=== PATIENT | female | born 1985 | race Caucasian/White ===

== ENCOUNTER 2016-08-09 20:53 | Emergency (ER) | payer OTHER ==
[~2016-08-09] VITALS: Ht 160 cm; Wt 70.0 kg
[~2016-08-09 20:53] MED LIST: PRIL20CA PO; PROM25SU8 PO; TRAM50 PO; Z.0.NO CURRENT MEDS
[2016-08-09 20:56] VITALS: BP 134/88; PULSE 88; RESP 14; TEMP 98.9; O2SAT 100
[2016-08-09] MEDS ORDERED: FAMOTIDINE 20 MG TAB PO ONE (22:00)
[2016-08-09] MEDS ORDERED: SODIUM CHLOR 0.9% 1000 ML INJ 1,000 ML IV ONE (22:00)
[2016-08-09] MEDS ORDERED: ALUMINUM/MAGNESIUM/SIMETH 30 ML CUP PO ONE (22:00)
[2016-08-09] MEDS ORDERED: LIDOCAINE VISCOUS 2% SOLN 15 ML UDC PO ONE (22:00)
[2016-08-09 22:22] LABS: AUTOMATED NEUTROPHIL # 9.4 TH/MM3 (1.8-7.7); BASOPHIL # 0.1 TH/MM3 (0-0.2); BASOPHIL % 0.7 % (0.0-2.0); EOSINOPHIL # 0.2 TH/MM3 (0-0.4); EOSINOPHIL % 1.8 % (0.0-4.0); HEMATOCRIT 40.9 % (35.0-46.0); HEMO FLAGS DIFF FINAL; LYMPH % 21.5 % (9.0-44.0); MEAN CELL VOLUME 93.3 FL (80.0-100.0); MEAN CORPUSCULAR HEMOGLOBIN 32.4 PG (27.0-34.0); MEAN CORPUSCULAR HGB CONC 34.7 % (32.0-36.0); MONO % 9.1 % (0.0-8.0); NEUT % 66.9 % (16.0-70.0); PLATELET COUNT 326 TH/MM3 (150-450); RED BLOOD COUNT 4.39 MIL/MM3 (4.00-5.30); RED CELL DISTRIBUTION WIDTH 12.7 % (11.6-17.2)
[2016-08-09 22:30] LABS: BACTERIA, URINE RARE /hpf; BLOOD, URINE NEG (NEG); COMMENT (UR) CULT NOT INDICATED; CULTURE IF INDICATED CULT NOT INDICATED; GLUCOSE,URINE NEG (NEG); KETONE, URINE NEG (NEG); MUCUS URINE FEW /lpf (OCC); NITRITE,URINE NEG (NEG); PH, URINE 6.5 (5.0-8.5); SQUAMOUS EPITHELIAL CELL URINE 4 /hpf (0-5); URINE COLOR LIGHT-YELLOW (YELLW/STRAW)
[2016-08-09 22:43] LABS: ALKALINE PHOSPHATASE 70 U/L (45-117); TOTAL BILIRUBIN ADULT 0.2 MG/DL (0.2-1.0)
[2016-08-09 23:04] LABS: ALT (GPT) 45 U/L (10-53); ANION GAP 7 MEQ/L (5-15); AST (GOT) 28 U/L (15-37); BLOOD UREA NITROGEN 15 MG/DL (7-18); CHLORIDE 106 MEQ/L (98-107); GLOMERULAR FILTRATION RATE 100 ML/MIN (>89); INDIRECT BILIRUBIN 0.1 MG/DL (0.0-0.8); SODIUM (NA) 138 MEQ/L (136-145)
[2016-08-10] MEDS ORDERED: ZANT150T2 PO (00:14)
--- NOTE | 2016-08-10 00:14 | PD ---
HPI Chief Complaint: Abdominal Pain Time Seen by Provider: 21:38 Travel History International Travel<30 days: No Contact w/Intl Traveler<30days: No Traveled to known affect area: No History of Present Illness HPI Patient is a 31-year-old female, approximately 7 weeks who comes in complaining of epigastric abdominal pain. She says the pain started yesterday and has been getting worse. She says taking deep breaths makes the pain worse. She denies fever or chills. She denies nausea or vomiting. She's been eating like normal. She denies any vaginal bleeding or discharge. [facility] Past Medical History Diabetes: Yes (GESTATIONAL) Patient Takes Glucophage: No Diminished Hearing: No Psychiatric: Yes Immunizations Current: Yes ?: LMP: June : 0 Para: 0 Miscarriage: 0 : 0 Past Surgical History Abdominal Surgery: Yes (COLON RESECTION A BABY) Appendectomy: Yes Section: Yes Cholecystectomy: Yes Social History Alcohol Use: Yes (HISTORY ETOH ABUSE) Tobacco Use: Yes (1PPD) Substance Use: Yes (ABUSES LORTABS OCCASIONALLY) Allergies-Medications (Allergen,Severity, Reaction): Coded Allergies: Penicillin (Verified Allergy, Unknown, rash, 08/09/16) Reported Meds & Prescriptions Reported Meds & Active Scripts Active Zantac (Ranitidine HCl) 150 Mg Tab 150 Mg PO BID Review of Systems Except as stated in HPI: all other systems reviewed are Neg General / Constitutional: No: Fever, Chills HENT: No: Headaches, Lightheadedness Cardiovascular: No: Chest Pain or Discomfort Respiratory: No: Shortness of Breath Gastrointestinal: Positive: Abdominal Pain, No: Nausea, Vomiting Genitourinary: No: Dysuria Skin: No Rash Neurologic: No: Weakness, Dizziness Physical Exam Narrative GENERAL: Awake and alert, no acute distress. SKIN: Focused skin assessment warm/dry. HEAD: Atraumatic. Normocephalic. EYES: Pupils equal and round. No scleral icterus. ENT: Mucous membranes pink and moist. NECK: Trachea midline. No JVD. CARDIOVASCULAR: Regular rate and rhythm. No murmur appreciated. RESPIRATORY: No accessory muscle use. Clear to auscultation. Breath sounds equal bilaterally. GASTROINTESTINAL: Abdomen soft, nondistended. Tender to palpation of the mid epigastric area. No rebound or guarding. No CVA tenderness. MUSCULOSKELETAL: No obvious deformities. No clubbing. No cyanosis. No edema. NEUROLOGICAL: Awake and alert. No obvious cranial nerve deficits. Motor grossly within normal limits. Normal speech. PSYCHIATRIC: Appropriate mood and affect; insight and judgment normal. Data Data Last Documented VS Vital Signs Date Time Temp Pulse Resp B/P Pulse Ox O2 Delivery O2 Flow Rate FiO2 08/09/16 20:56 98.9 88 14 134/88 100 Room Air Orders Complete Blood Count With Diff (08/09/16 21:46) Basic Metabolic Panel (Bmp) (08/09/16 21:46) Hepatic Functional Panel (08/09/16 21:46) Lipase (08/09/16 21:46) Urinalysis - C+S If Indicated (08/09/16 21:46) Sodium Chlor 0.9% 1000 Ml Inj (Ns 1000 M (08/09/16 22:00) Famotidine (Pepcid) (08/09/16 22:00) Al-Mag Hy-Si 40-40-4 Mg/Ml Liq (Mag-Al P (08/09/16 22:00) Lidocaine 2% Viscous (Xylocaine 2% Visco (08/09/16 22:00) Labs Laboratory Tests Test 08/09/16 22:07 White Blood Count 14.0 TH/MM3 Red Blood Count 4.39 MIL/MM3 Hemoglobin 14.2 GM/DL Hematocrit 40.9 % Mean Corpuscular Volume 93.3 FL Mean Corpuscular Hemoglobin 32.4 PG Mean Corpuscular Hemoglobin 34.7 % Concent Red Cell Distribution Width 12.7 % Platelet Count 326 TH/MM3 Mean Platelet Volume 7.7 FL Neutrophils (%) (Auto) 66.9 % Lymphocytes (%) (Auto) 21.5 % Monocytes (%) (Auto) 9.1 % Eosinophils (%) (Auto) 1.8 % Basophils (%) (Auto) 0.7 % Neutrophils # (Auto) 9.4 TH/MM3 Lymphocytes # (Auto) 3.0 TH/MM3 Monocytes # (Auto) 1.3 TH/MM3 Eosinophils # (Auto) 0.2 TH/MM3 Basophils # (Auto) 0.1 TH/MM3 CBC Comment DIFF FINAL Differential Comment Urine Color LIGHT-YELLOW Urine Turbidity CLEAR Urine pH 6.5 Urine Specific [place] 1.011 Urine Protein NEG mg/dL Urine Glucose (UA) NEG mg/dL Urine Ketones NEG mg/dL Urine Occult Blood NEG Urine Nitrite NEG Urine Bilirubin NEG Urine Urobilinogen LESS THAN 2.0 MG/DL Urine Leukocyte Esterase TRACE Urine RBC LESS THAN 1 /hpf Urine Squamous Epithelial 4 /hpf Cells Urine Bacteria RARE /hpf Urine Mucus FEW /lpf Microscopic Urinalysis Comment CULT NOT INDICATED Sodium Level 138 MEQ/L Potassium Level 4.0 MEQ/L Chloride Level 106 MEQ/L Carbon Dioxide Level 25.0 MEQ/L Anion Gap 7 MEQ/L Blood Urea Nitrogen 15 MG/DL Creatinine 0.69 MG/DL Estimat Glomerular Filtration 100 ML/MIN Rate Random Glucose 83 MG/DL Calcium Level 9.3 MG/DL Total Bilirubin 0.2 MG/DL Direct Bilirubin LESS THAN 0.1 MG/DL Indirect Bilirubin 0.1 MG/DL Aspartate Amino Transf 28 U/L (AST/SGOT) Alanine Aminotransferase 45 U/L (ALT/SGPT) Alkaline Phosphatase 70 U/L Total Protein 7.6 GM/DL Albumin 3.9 GM/DL Lipase 163 U/L MDM Medical Decision Making Medical Screen Exam Complete: Yes Emergency Medical Condition: Yes Medical Record Reviewed: Yes Differential Diagnosis GERD versus gastritis versus pancreatitis versus cholecystitis Narrative Course Patient is a 31-year-old female comes in complaining of epigastric abdominal pain. Exam shows tenderness in midepigastric area. IV established, labs sent. Labs show no acute abnormalities. Urinalysis is negative for UTI. Patient given IV fluids, Maalox, lidocaine, famotidine. She is sleeping comfortably. However when woken up, she says she still has pain. We discussed medications that are safe in . She does not want any other medication at this time. We will discharge with prescription for Zantac. Advised to avoid spicy food, peppers, chocolate, caffeine. Advised to follow-up with her OB. Advised to return to the ED as needed for any worsening symptoms. Diagnosis Primary Impression: Gastritis Qualified Code: K29.00 - Acute gastritis without hemorrhage, unspecified gastritis type Patient Instructions: Gastritis (ED), General Instructions Additional Instructions: You can take Maalox for pain. Take the Zantac twice a day. Avoid spicy foods, peppers, caffeine, chocolate. Follow up with your OB. Return to the ED as needed for any worsening symptoms. Scripts Ranitidine (Zantac)150 Mg [id number] Mg PO BID #60 TAB Ref 0 Prov:Paulina Mckeon MD 08/10/16 Disposition: 01 DISCHARGE HOME Condition: Stable Paulina Mckeon MD August 10, 2016 00:14
== END 2016-08-10 00:51 | disposition home or self-care (01) ==
LOC: NEPE 20:53
DX: O99.611 Diseases of the digestive system complicating pregnancy, first trimester (principal); K29.00 Acute gastritis without bleeding; Z3A.01 Less than 8 weeks gestation of pregnancy
CPT/HCPCS: 80048; 80076; 81001; 83690; 85025; 96360; 99284; J7030

== ENCOUNTER 2017-03-31 01:16 | Inpatient (IN) | payer MEDICAID, OTHER ==
[~2017-03-31] VITALS: Ht 162.6 cm; Wt 83.0 kg
[2017-03-31] VITALS (63 sets, daily range): BP systolic 108–162; BP diastolic 52–100; PULSE 71–216; RESP 16–20; TEMP 97.7–98.5
[~2017-03-31 01:16] MED LIST changes: -PRIL20CA PO; -PROM25SU8 PO; -TRAM50 PO; -Z.0.NO CURRENT MEDS; +ZANT150T2 PO
[2017-03-31] MEDS: LACTATED RINGER'S 1000 ML INJ 1,000 ML IV SCH ×3 (02:00→07:59)
--- NOTE | 2017-03-31 02:09 | PD ---
HPI Chief Complaint Contractions Date Seen: Mar 31, 2017 Time Seen: 02:00 Travel History International Travel<30 Days: No Contact w/Intl Traveler<30Days: No Known Affected Area: No History of Present Illness HPI 31-year-old 3 para 2 at 38+ weeks gestation presents tonight with increasing contraction activity. She denies leakage of fluid or bleeding. She has a history of 2 prior C-sections but desires a trial of labor. History Past Medical History Medical History: Denies Significant Hx Obstetric History Obstetric History First complicated by distress in active labor and subsequent C- section at [facility]. Second was elective repeat Her largest infant was 8 pounds and her smallest was 6-1/2 pounds care this has been with Anastasiia Beard. O positive AST negative hepatitis B negative RPR nonreactive rubella immune hemoglobin 14 HIV -1 hour 95 GBS negative GC chlamydia negative Past Surgical History Narrative Surgical 2, colostomy and colostomy reversal at age 2 Family History Family History: Negative Social History Alcohol Use: No Tobacco Use: No Substance Abuse: No Allergies-Medications (Allergen,Severity, Reaction): Coded Allergies: penicillin G (Unverified Allergy, Unknown, rash, 11/07/16) Home Meds Active Scripts Ranitidine (Zantac) 150 Mg Tab, 150 MG PO BID for Reduce Stomach Acid, #60 TAB 0 Refills Prov:Paulina Mckeon MD 08/10/16 Review of Systems Except as stated in HPI: all other systems reviewed are Neg Physical Exam Narrative GENERAL: Well-nourished, well-developed patient. SKIN: Warm and dry. HEAD: Normocephalic and atraumatic. EYES: No scleral icterus. No injection or drainage. ENT: No nasal drainage noted. Mucous membranes pink. Airway patent. NECK: Supple, trachea midline. No JVD. CARDIOVASCULAR: Regular rate and rhythm without murmurs, gallops, or rubs. RESPIRATORY: Breath sounds equal bilaterally. No accessory muscle use. ABDOMEN/GI: Abdomen soft, non-tender, bowel sounds present, no rebound, no guarding Gravid to [-38 weeks, estimated weight 6-1/2-7 pounds] weeks size Fundal Height: [-37] GENITOURINARY: External Genitalia: intact and normal in appearance BUS glands: [Negative-] Cervix: [-] Dilatation: [-4] Effacement: [-100] Station: [--2] Presentation: [-Vertex] Membranes: [intact] Uterine Contractions: [-Every 3] FHT's: Category: [1-] Baseline: [-] Reactive: [-] Variability: [-] Decels: [-] EXTREMITIES: No cyanosis or edema. BACK: Nontender without obvious deformity. No CVA tenderness. NEUROLOGICAL: Awake and alert. Motor and sensory grossly within normal limits. Five out of 5 muscle strength in all muscle groups. Normal speech. Data Data Vital Signs Reviewed: Yes Orders Orders Ob (2e) Additional Admit Info (03/31/17 01:57) Group B Strep: Negative MDM Medical Record Reviewed: Yes Narrative Course / MDM Assessment: Multiparous female at 38 weeks gestation in early active labor, 2 prior sections desiring trial of labor Plan: We reviewed the risks benefits and alternatives emphasizing on risks associated with trial of labor after 2 C-sections. She is accepting of this risk and desires to proceed with trial of labor. Admit for labor management. Lito Shukla MD Mar 31, 2017 02:09
[2017-03-31] MEDS ORDERED: LACTATED RINGER'S 1000 ML INJ 1,000 ML IV PRN (02:10)
[2017-03-31] MEDS ORDERED: LIDOCAINE HCL 1% 50 ML VIAL I-DERMAL PRN (02:15)
[2017-03-31] MEDS ORDERED: CITRIC ACID-SODIUM CITRATE LIQ 30 ML UDC PO SCH (02:15)
[2017-03-31] MEDS ORDERED: LIDOCAINE HCL 1% 50 ML VIAL INFIL PRN (02:15)
[2017-03-31] MEDS ORDERED: OXYTOCIN 30 UNITS-500ML PREMIX 500 ML IV ONE (02:15)
[2017-03-31] MEDS ORDERED: ONDANSETRON HCL 4 MG/2 ML VIAL IV PUSH PRN (02:15)
[2017-03-31] MEDS ORDERED: MINERAL OIL 10 ML VIAL TOPICAL PRN (02:15)
[2017-03-31] MEDS ORDERED: SODIUM CHLORID 0.9% 500 ML INJ 500 ML IV PRN (02:15)
[2017-03-31] MEDS ORDERED: SODIUM CHLOR 0.9% 1000 ML INJ 1,000 ML IV PRN (02:30)
[2017-03-31] MEDS ORDERED: fentaNYL 2MCG-BUPIV 0.125% INJ 100 ML ONE ×3 (02:33→09:30)
[2017-03-31 02:37] LABS: AUTOMATED NEUTROPHIL # 12.7 TH/MM3 (1.8-7.7); BASOPHIL # 0.2 TH/MM3 (0-0.2); EOSINOPHIL # 0.3 TH/MM3 (0-0.4); EOSINOPHIL % 1.5 % (0.0-4.0); HEMATOCRIT 38.7 % (35.0-46.0); HEMOGLOBIN 13.4 GM/DL (11.6-15.3); LYMPH % 20.5 % (9.0-44.0); LYMPHOCYTE # 3.6 TH/MM3 (1.0-4.8); MEAN CELL VOLUME 95.3 FL (80.0-100.0); MEAN CORPUSCULAR HGB CONC 34.6 % (32.0-36.0); MEAN PLATELET VOLUME 7.7 FL (7.0-11.0); MONO % 5.7 % (0.0-8.0); NEUT % 71.3 % (16.0-70.0); PLATELET COUNT 296 TH/MM3 (150-450); RED BLOOD COUNT 4.06 MIL/MM3 (4.00-5.30); RED CELL DISTRIBUTION WIDTH 13.1 % (11.6-17.2); WHITE BLOOD COUNT 17.8 TH/MM3 (4.0-11.0)
[2017-03-31 02:48] LABS: AMORPHOUS SEDIMENT, URINE FEW; BACTERIA, URINE RARE /hpf; BILIRUBIN, URINE NEG (NEG); BLOOD, URINE NEG (NEG); GLUCOSE,URINE NEG (NEG); KETONE, URINE NEG (NEG); MUCUS URINE FEW /lpf (OCC); NITRITE,URINE NEG (NEG); PH, URINE 7.5 (5.0-8.5); SQUAMOUS EPITHELIAL CELL URINE 3 /hpf (0-5); URINE COLOR YELLOW (YELLW/STRAW); URINE LEUKOCYTE ESTERASE SMALL (NEG)
[2017-03-31 03:26] LABS: ALT (GPT) 15 U/L (10-53); BICARBONATE 21.7 MEQ/L (21.0-32.0); BLOOD UREA NITROGEN 10 MG/DL (7-18); CALCIUM 9.9 MG/DL (8.5-10.1); CHLORIDE 106 MEQ/L (98-107); CREATININE 0.67 MG/DL (0.50-1.00); GLOMERULAR FILTRATION RATE 103 ML/MIN (>89); GLUCOSE,RANDOM 81 MG/DL (74-106); SODIUM (NA) 138 MEQ/L (136-145)
[2017-03-31 03:30] LABS: ALKALINE PHOSPHATASE 150 U/L (45-117); AST (GOT) 13 U/L (15-37); TOTAL BILIRUBIN ADULT 0.4 MG/DL (0.2-1.0); TOTAL PROTEIN 7.4 GM/DL (6.4-8.2)
--- NOTE | 2017-03-31 09:57 | PD.OB.DELI ---
Weeks gestation: 38 Artificial rupture of membrane: No Anesthesia: Epidural Episiotomy: None Vaginal Delivery: Normal, Spontaneous Presentation: Occiput anterior Nuchal Cord: None Delayed cord clamping (45 sec): Yes : Female Delivery date: Mar 31, 2017 Delivery time: 09:41 One Minute : 8 Five Minute : 9 Weight: 3203 grams Placenta: Spontaneous delivery, Intact, 3 vessel cord Laceration: No lacerations Estimated blood loss: < 250 cc Additional Information Patient is a 32 year old now , mother delivered vaginally over an intact perineum under epidural anesthesia. There was no nuchal cord. The cord was clamped and cut after 45 seconds. The placenta was delivered intact with a normal 3-vessel cord within 10 minutes. Sample of blood was obtained for blood cord gas. There were no lacerations. Blood estimation < 250 cc. Female infant weighs 3203 grams. scores are 8/9 at 1 and 5 minutes respectively. (Ankur Donato MD R2) Attestation Patient seen and evaluated with resident under direct supervision, agree with assessment and plan. (Lito Shukla MD) Ankur Donato MD R2 Mar 31, 2017 09:57 Lito Shukla MD Apr 01, 2017 11:37
[2017-03-31] MEDS ORDERED: ACETAMINOPHEN 325 MG TAB PO PRN (10:00)
[2017-03-31] MEDS ORDERED: ALUMINUM/MAGNESIUM/SIMETH 30 ML CUP PO PRN (10:00)
[2017-03-31] MEDS ORDERED: SODIUM CHLORIDE 0.9% FLUSH 10 ML FLUSH IV FLUSH PRN (10:00)
[2017-03-31] MEDS ORDERED: BENZOCAINE 20% TOPICAL SPRAY 60 ML CAN TOPICAL PRN (10:00)
[2017-03-31] MEDS ORDERED: OXYTOCIN 30 UNITS-500ML PREMIX 500 ML IV SCH (10:00)
[2017-03-31] MEDS ORDERED: SODIUM CHLORIDE 0.9% FLUSH 10 ML FLUSH IV FLUSH SCH (10:00)
[2017-03-31] MEDS ORDERED: ONDANSETRON ODT 4 MG TAB PO PRN (10:00)
[2017-03-31] MEDS ORDERED: ZOLPIDEM TARTRATE 5 MG TAB PO PRN (10:00)
[2017-03-31] MEDS ORDERED: WITCH HAZEL 50%/GLYCERIN 12.5% 40 PAD JAR TOPICAL PRN (10:00)
[2017-03-31] MEDS ORDERED: fentaNYL 2MCG-BUPIV 0.125% 100 ML EPIDURAL SCH (11:00)
[2017-03-31] MEDS ORDERED: ePHEDrine/NS 25 MG/5 ML SYRINGE IV PUSH PRN (11:00)
[2017-03-31] MEDS ORDERED: DO NOT ADMINISTER ANTICOAGULANTS PRN (11:00)
[2017-03-31] MEDS ORDERED: NO SYSTEM NARCOTICS PRN (11:00)
[2017-03-31] MEDS: IBUPROFEN 800 MG TAB PO PRN ×2 (11:27→22:26)
[2017-03-31] MEDS ORDERED: MEASLES, MUMPS, RUBELLA VACCINE 0.5 ML VIAL SQ ONE (16:00)
[2017-03-31] MEDS ORDERED: DIPHTH/TETANUS/ACEL PERTUSSIS (BOOSTER) 0.5 ML VIAL/PFS IM ONE (16:00)
[2017-03-31] MEDS: oxyCODONE/ACETAMINOPHEN 5 MG/325 MG TAB PO PRN ×2 (16:20→22:27)
--- NOTE | 2017-04-01 07:42 | HHI.OB ---
Subjective Post Day: 1 Remarks Patient seen and examined this morning. AFVSS overnight. day #1. Patient states her pain is well controlled. Decreased lochia. Denies dysuria. She is feeding her baby via breast without reported issues. No breast tenderness. No nausea or vomiting. Ambulating well without issues. Denies fevers , calf pain, shortness of breath, or cough. She is still considering her options for contraception. She otherwise has no other complaints or concerns this morning. Objective Vitals/I&O Vital Signs Date Time Temp Pulse Resp B/P (MAP) Pulse Ox O2 Delivery O2 Flow Rate FiO2 03/31/17 22:30 71 16 117/80 (92) 03/31/17 22:30 97.7 03/31/17 12:56 92 119/76 (90) 03/31/17 12:56 98.0 18 03/31/17 12:38 18 03/31/17 11:30 72 127/90 (102) 03/31/17 11:01 98 141/88 (105) 03/31/17 10:45 89 122/79 (93) 03/31/17 10:30 96 126/75 (92) 03/31/17 10:15 102 134/91 (105) 03/31/17 10:15 16 03/31/17 10:01 99 131/83 (99) 03/31/17 10:00 97.9 03/31/17 10:00 18 03/31/17 09:55 108 143/81 (101) 03/31/17 09:30 18 03/31/17 09:10 104 03/31/17 09:05 91 03/31/17 09:00 77 03/31/17 09:00 97 133/76 (95) 03/31/17 08:30 75 03/31/17 08:30 86 118/62 (80) 03/31/17 08:10 97 03/31/17 08:05 100 03/31/17 08:00 93 131/84 (100) 03/31/17 08:00 98.3 90 18 03/31/17 07:40 91 Objective Remarks GENERAL: Well-nourished, well-developed patient. CARDIOVASCULAR: Regular rate and rhythm without murmurs, gallops, or rubs. RESPIRATORY: Breath sounds equal bilaterally. No accessory muscle use. ABDOMEN/GI: Abdomen soft, non-tender. Fundus: Firm, non-tender at umbilicus. GENITOURINARY: Light to moderate bleeding. EXTREMITIES: No cyanosis or edema, non-tender, without signs of DVT. Medications and IVs Current Medications Medications (Trade) Dose Ordered Sig/Beatriz Route Start Time Stop Time Status Last Admin Lactated Ringer's 1,000 ml @ 125 mls/hr Q8H IV 03/31/17 02:10 03/31/17 07:59 Lactated Ringer's 1,000 ml @ 3,000 mls/hr Q20M PRN IV 03/31/17 02:10 Sodium Chloride 1,000 ml @ 100 mls/hr Q10H PRN IV 03/31/17 02:30 (Xylocaine 1% Inj (50 ml)) 0.1 ml UNSCH X1 PRN I-DERMAL 03/31/17 02:15 04/03/17 02:14 (Bicitra Liq) 30 ml [employer] PROPERTY PO 03/31/17 02:15 04/04/17 02:14 (fentaNYL INJ) 50 mcg Q1H PRN IV PUSH 03/31/17 02:15 (fentaNYL INJ) 100 mcg Q1H PRN IV PUSH 03/31/17 02:15 (Xylocaine 1% Inj (50 ml)) 10 ml UNSCH X1 PRN INFIL 03/31/17 02:15 04/02/17 02:14 (Muri-Lube Oil) 10 ml UNSCH PRN TOPICAL 03/31/17 02:15 (NS Flush) 2 ml BID IV FLUSH 03/31/17 10:00 (NS Flush) 2 ml UNSCH PRN IV FLUSH 03/31/17 10:00 03/31/17 11:28 (Tylenol) 650 mg Q4H PRN PO 03/31/17 10:00 (Motrin) 800 mg Q8H PRN PO 03/31/17 10:00 03/31/17 22:26 (Percocet 5-325 Mg) 1 tab Q4H PRN PO 03/31/17 10:00 03/31/17 16:20 (Percocet 5-325 Mg) 2 tab Q4H PRN PO 03/31/17 10:00 03/31/17 22:27 (Americaine 20% Top Spr) 1 spray Q4H PRN TOPICAL 03/31/17 10:00 03/31/17 16:19 (Tucks Pads) 1 applic QID PRN TOPICAL 03/31/17 10:00 03/31/17 16:19 (Marta-Colace) 2 tab Q12HR PRN PO 03/31/17 21:00 (Ambien) 5 mg HS PRN PO 03/31/17 10:00 (Mag-Al Plus Susp Liq) 15 ml Q8H PRN PO 03/31/17 10:00 (Zofran Odt) 4 mg Q6H PRN PO 03/31/17 10:00 Miscellaneous Information No systemic narcotics to be given except... UNSCH PRN .XX 03/31/17 11:00 04/01/17 10:59 Miscellaneous Information DO NOT ADMINISTER ANY ANTICOAGUL... UNSCH PRN .XX 03/31/17 11:00 04/01/17 10:59 Fentanyl/ Bupivacaine HCl 100 ml @ 0 mls/hr TITRATE EPIDURAL 03/31/17 11:00 (ePHEDrine/NS 25 MG/5 ML SYR) 10 mg UNSCH PRN IV PUSH 03/31/17 11:00 04/01/17 10:59 Assessment/Plan Assessment and Plan 32 year old PPD#1. 1. Care - AFVSS - Encouraged OOB, as tolerated - Motrin prn pain - Advised pelvic rest x 6 weeks - without issues - Contraception: Discussed with patient this AM, patient still considering her options - Will f/u with OB provider in 6 weeks [facility] Hospitalist Ankur Donato MD R2 Apr 01, 2017 07:42
[2017-04-01 08:00] VITALS: BP 111/74; PULSE 77; RESP 20; TEMP 95.7; O2SAT 0
[2017-04-01] MEDS: IBUPROFEN 800 MG TAB PO PRN ×2 (08:00→13:54)
[2017-04-01] MEDS: DOCUSATE SODIUM 50 MG/SENNA 8.6 MG TAB PO PRN (08:00)
[2017-04-01] MEDS: oxyCODONE/ACETAMINOPHEN 5 MG/325 MG TAB PO PRN ×3 (08:01→20:28)
[2017-04-01] MEDS ORDERED: PERI PO (08:49)
[2017-04-01] MEDS ORDERED: IBUP1TAB7 PO (08:49)
--- NOTE | 2017-04-01 08:49 | HHI.DCPOC ---
Discharge Care Plan Diagnosis: (1) care following vaginal delivery Report Symptoms to Your Doctor -Temperature above 100.5 degrees -Redness, of incision or excessive or foul smelling drainage -Unusual pain or calf pain -Increased vaginal bleeding -Painful or difficulty urinating -Feelings of extreme sadness or anxiety after 2 weeks Goals to Promote Your Health * To maintain your health at the optimal level, follow up with your OB provider within 6 weeks after hospital discharge. Directions to Meet Your Goals Take your medications as prescribed Follow your dietary instruction Follow activity as directed Ensure plenty of rest for recovery Drink fluids for hydration Keep your appointments as scheduled Take your immunizations and boosters as scheduled If your symptoms worsen call your PCP, if no PCP go to Urgent Care Center or Emergency Room Smoking is Dangerous to Your Health. Avoid second hand smoke Call the 24-hour crisis hotline for domestic abuse at Ankur Donato MD R2 Apr 01, 2017 08:49
[2017-04-01 20:10] VITALS: BP 138/92; PULSE 80; RESP 18; TEMP 98.1
[2017-04-02] MEDS: IBUPROFEN 800 MG TAB PO PRN (04:24)
[2017-04-02] MEDS: oxyCODONE/ACETAMINOPHEN 5 MG/325 MG TAB PO PRN (04:24)
[2017-04-02] MEDS: DOCUSATE SODIUM 50 MG/SENNA 8.6 MG TAB PO PRN (04:25)
[2017-04-02 08:00] VITALS: BP 113/80; PULSE 60; RESP 18; TEMP 98.6
--- NOTE | 2017-04-02 08:16 | HHI.OB ---
Subjective Post Day: 2 Remarks Mrs. Iyer is a 32 yo who is PPD2 from vaginal delivery (03/31 at 0941). Patient with BP 138/92 the evening of 04/01 but generally normotensive. Patient doing well this morning. She has continued abdominal pain but reports that it is improved with Ibuprofen and Percocet. Patient with decreased lochia. No shortness of breath, chest pain, dysuria, or leg swelling. Patient eating well. Objective Vitals/I&O Vital Signs Date Time Temp Pulse Resp B/P (MAP) Pulse Ox O2 Delivery O2 Flow Rate FiO2 04/01/17 20:10 98.1 80 18 138/92 (107) Objective Remarks GENERAL: Well-nourished, well-developed patient. CARDIOVASCULAR: Regular rate and rhythm without murmurs, gallops, or rubs. RESPIRATORY: Breath sounds equal bilaterally. No accessory muscle use. ABDOMEN/GI: Abdomen soft, non-tender. Fundus: Firm, non-tender at umbilicus. GENITOURINARY: Light to moderate bleeding. EXTREMITIES: No cyanosis or edema, non-tender, without signs of DVT. Medications and IVs Current Medications Medications (Trade) Dose Ordered Sig/Beatriz Route Start Time Stop Time Status Last Admin Lactated Ringer's 1,000 ml @ 125 mls/hr Q8H IV 03/31/17 02:10 03/31/17 07:59 Lactated Ringer's 1,000 ml @ 3,000 mls/hr Q20M PRN IV 03/31/17 02:10 Sodium Chloride 1,000 ml @ 100 mls/hr Q10H PRN IV 03/31/17 02:30 (Xylocaine 1% Inj (50 ml)) 0.1 ml UNSCH X1 PRN I-DERMAL 03/31/17 02:15 04/03/17 02:14 (Bicitra Liq) 30 ml SCROLL MACHINE OPERATOR PO 03/31/17 02:15 04/04/17 02:14 (fentaNYL INJ) 50 mcg Q1H PRN IV PUSH 03/31/17 02:15 (fentaNYL INJ) 100 mcg Q1H PRN IV PUSH 03/31/17 02:15 (Muri-Lube Oil) 10 ml UNSCH PRN TOPICAL 03/31/17 02:15 (NS Flush) 2 ml BID IV FLUSH 03/31/17 10:00 (NS Flush) 2 ml UNSCH PRN IV FLUSH 03/31/17 10:00 03/31/17 11:28 (Tylenol) 650 mg Q4H PRN PO 03/31/17 10:00 (Motrin) 800 mg Q8H PRN PO 03/31/17 10:00 04/02/17 04:24 (Percocet 5-325 Mg) 1 tab Q4H PRN PO 03/31/17 10:00 04/01/17 13:55 (Percocet 5-325 Mg) 2 tab Q4H PRN PO 03/31/17 10:00 04/02/17 04:24 (Americaine 20% Top Spr) 1 spray Q4H PRN TOPICAL 03/31/17 10:00 03/31/17 16:19 (Tucks Pads) 1 applic QID PRN TOPICAL 03/31/17 10:00 03/31/17 16:19 (Marta-Colace) 2 tab Q12HR PRN PO 03/31/17 21:00 04/02/17 04:25 (Ambien) 5 mg HS PRN PO 03/31/17 10:00 (Mag-Al Plus Susp Liq) 15 ml Q8H PRN PO 03/31/17 10:00 (Zofran Odt) 4 mg Q6H PRN PO 03/31/17 10:00 Fentanyl/ Bupivacaine HCl 100 ml @ 0 mls/hr TITRATE EPIDURAL 03/31/17 11:00 Assessment/Plan Problem List: (1) care following vaginal delivery ICD Codes: Z39.2 - Encounter for routine follow-up Assessment and Plan 32 yo who is PPD2 from vaginal delivery (03/31 at 0941) Care - AFVSS -Stable for discharge home; will give Ibuprofen and limited Percocet for pain control Intermittent elevated BP - Will f/u with OB provider in 1 week Chandler Dye MD, R3 Apr 02, 2017 08:16
[2017-04-02] MEDS ORDERED: OXYC1TAB63 PO (08:50)
== END 2017-04-02 12:05 | disposition home or self-care (01) | DRG 775 ==
LOC: HOBED 01:16 → H2EB 01:58 → H1EA 12:28
PROVIDERS: ADMIT Obstetrics & Gynecology; ATTEND Obstetrics & Gynecology
PROC: 10E0XZZ Delivery of Products of Conception, External Approach (ICD-10-PCS; principal; 2017-03-31)
DX: O34.219 Maternal care for unspecified type scar from previous cesarean delivery (principal); Z88.0 Allergy status to penicillin; Z37.0 Single live birth; Z3A.38 38 weeks gestation of pregnancy
CPT/HCPCS: 80053; 80307; 81001; 85025; 86900; 86901; J2590; J7120

== ENCOUNTER 2017-05-09 07:18 | Emergency (ER) | payer MEDICAID ==
[~2017-05-09] VITALS: Ht 162.6 cm; Wt 70.0 kg
[~2017-05-09 07:18] MED LIST changes: +IBUP1TAB7 PO; +OXYC1TAB63 PO; +PERI PO; -ZANT150T2 PO
[2017-05-09] MEDS ORDERED: IOHEXOL 350 MG/ML 10 ML VIAL (for RAD DIAG) IVCONTRAST ONE (07:19)
[2017-05-09 07:20] VITALS: BP 140/80; PULSE 94; RESP 18; TEMP 98.7; O2SAT 99
--- NOTE | 2017-05-09 07:43 | PD ---
HPI . Abdominal pain Chief Complaint: Abdominal Pain Time Seen by Provider: 07:29 Travel History International Travel<30 days: No Contact w/Intl Traveler<30days: No Traveled to known affect area: No History of Present Illness HPI This patient presents with the acute onset of left lower quadrant abdominal pain. This started about 5:30 this morning. It is a sharp, constant pain which she rates 10/10. It is exacerbated by movement. Associated with nausea. She denies vomiting, fever, urinary tract symptoms. She is 5 weeks states that she has had no significant discomfort until this morning. PFSH Past Medical History Diabetes: Yes (GESTATIONAL) Diminished Hearing: No Psychiatric: Yes Immunizations Current: Yes ?: Not : 0 Para: 0 Miscarriage: 0 : 0 Past Surgical History Abdominal Surgery: Yes (COLON RESECTION A BABY) Appendectomy: Yes Section: Yes Cholecystectomy: Yes Social History Alcohol Use: No Tobacco Use: No Substance Use: Yes (ABUSES LORTABS OCCASIONALLY) Allergies-Medications (Allergen,Severity, Reaction): Coded Allergies: No Known Allergies (Verified Allergy, Unknown, 03/31/17) Reported Meds & Prescriptions Reported Meds & Active Scripts Active Oxycodone-Acetaminophen 5-325 (Oxycodone HCl/Acetaminophen) 5 Mg-325 Mg Tablet 1 Tab PO Q4H PRN Gnp Senna Plus 8.6-50 mg (Sennosides-Docusate Sodium) 8.6 Mg-50 Mg Tab 2 Tab PO Q12HR PRN Ibuprofen 800 Mg Tab 800 Mg PO Q8H PRN Review of Systems Except as stated in HPI: all other systems reviewed are Neg General / Constitutional: No: Fever, Chills Gastrointestinal: Positive: Nausea, Abdominal Pain, No: Vomiting, Diarrhea, Constipation Genitourinary: No: Urgency, Frequency, Dysuria, Discharge, Vaginal Bleeding Physical Exam Narrative GENERAL: Patient is awake and alert. She looks uncomfortable. SKIN: warm/dry. Normal color and turgor. HEAD: Normocephalic. Atraumatic. EYES: Pupils equal and round. No scleral icterus. No injection or drainage. ENT: No nasal bleeding or discharge. Mucous membranes pink and moist. NECK: Trachea midline. Full range of motion without pain.. CARDIOVASCULAR: Regular rate and rhythm. RESPIRATORY: No accessory muscle use. Clear to auscultation. Breath sounds equal bilaterally. GASTROINTESTINAL: Abdomen soft. Left lower quadrant tenderness. Bowel sounds present. Nondistended. : No CVA tenderness. MUSCULOSKELETAL: No obvious deformities. NEUROLOGICAL: Awake and alert. No obvious cranial nerve deficits. Motor grossly within normal limits. Normal speech. PSYCHIATRIC: Appropriate mood and affect; insight and judgment normal. Data Data Last Documented VS Vital Signs Date Time Temp Pulse Resp B/P (MAP) Pulse Ox O2 Delivery O2 Flow Rate FiO2 05/09/17 07:52 18 05/09/17 07:20 98.7 94 140/80 (100) 99 Orders Orders Urinalysis - C+S If Indicated (05/09/17 07:30) Ed Urine Pregnancytest Poc (05/09/17 07:30) Basic Metabolic Panel (Bmp) (05/09/17 07:36) Complete Blood Count With Diff (05/09/17 07:36) Ct Abd/Pel W Iv Contrast(Rout) (05/09/17 07:36) Iv Access Insert/Monitor (05/09/17 07:36) Morphine Inj (Morphine Inj) (05/09/17 07:45) Ondansetron Inj (Zofran Inj) (05/09/17 07:45) Sodium Chloride 0.9% Flush (Ns Flush) (05/09/17 07:45) Ketorolac Inj (Toradol Inj) (05/09/17 08:00) Iohexol 350 Inj (Omnipaque 350 Inj) (05/09/17 07:19) Labs Laboratory Tests Test 05/09/17 07:45 White Blood Count 11.6 TH/MM3 Red Blood Count 4.88 MIL/MM3 Hemoglobin 15.4 GM/DL Hematocrit 46.1 % Mean Corpuscular Volume 94.5 FL Mean Corpuscular Hemoglobin 31.6 PG Mean Corpuscular Hemoglobin Concent 33.5 % Red Cell Distribution Width 12.8 % Platelet Count 370 TH/MM3 Mean Platelet Volume 6.9 FL Neutrophils (%) (Auto) 61.3 % Lymphocytes (%) (Auto) 26.8 % Monocytes (%) (Auto) 5.6 % Eosinophils (%) (Auto) 5.6 % Basophils (%) (Auto) 0.7 % Neutrophils # (Auto) 7.1 TH/MM3 Lymphocytes # (Auto) 3.1 TH/MM3 Monocytes # (Auto) 0.7 TH/MM3 Eosinophils # (Auto) 0.6 TH/MM3 Basophils # (Auto) 0.1 TH/MM3 CBC Comment DIFF FINAL Differential Comment Urine Color YELLOW Urine Turbidity HAZY Urine pH 6.5 Urine Specific [place] 1.020 Urine Protein TRACE mg/dL Urine Glucose (UA) NEG mg/dL Urine Ketones NEG mg/dL Urine Occult Blood NEG Urine Nitrite NEG Urine Bilirubin NEG Urine Urobilinogen LESS THAN 2.0 MG/DL Urine Leukocyte Esterase MOD Urine RBC 1 /hpf Urine WBC 2 /hpf Urine Squamous Epithelial Cells 21 /hpf Urine Bacteria OCC /hpf Urine Mucus FEW /lpf Microscopic Urinalysis Comment CULT NOT INDICATED Blood Urea Nitrogen 19 MG/DL Creatinine 0.83 MG/DL Random Glucose 99 MG/DL Calcium Level 8.8 MG/DL Sodium Level 139 MEQ/L Potassium Level 4.1 MEQ/L Chloride Level 106 MEQ/L Carbon Dioxide Level 26.8 MEQ/L Anion Gap 6 MEQ/L Estimat Glomerular Filtration Rate 80 ML/MIN MDM Medical Decision Making Medical Screen Exam Complete: Yes Emergency Medical Condition: Yes Differential Diagnosis Differential diagnosis of abdominal pain includes but is not limited to gastritis, pancreatitis, hepatitis, gastroenteritis, gallbladder disease, constipation, urinary retention, UTI, peptic ulcer disease, diverticulitis or appendicitis Narrative Course This patient presents with acute left lower quadrant abdominal pain. I will check a test. She will be given morphine for pain and Zofran for nausea. Routine labs and CT will be done to try to determine the etiology of her pain. HCG neg. CBC & BMP Diagram 05/09/17 07:45 Calcium Level 8.8 UA>>mod LE, 2 WBCs, occ bact and few mucous--this probably does not indicate infection. CT: 1. No acute CT abnormality to explain patient's abdominal pain. 2. Patient is with prominent endometrium. Although this is within expected findings, clinical correlation is recommended. No obvious etiology for this patient's pain has been found. The history, exam, diagnostic testing, and current condition do not suggest any significant pathology to warrant further testing, continued ED treatment, admission, or surgical evaluation at this point. No EMC was found. The patient 's condition is stable and appropriate for discharge. Diagnosis Primary Impression: Abdominal pain Qualified Codes: R10.32 - Left lower quadrant pain Patient Instructions: Abdominal Pain (ED), General Instructions Med/Other Pt SpecificInfo: Prescription(s) given Scripts Ibuprofen (Ibuprofen) 800 Mg Tab 800 MG PO Q8H Y for Pain/Inflammation, #60 TAB 0 Refills Prov: Estrella Jovel MD 05/09/17 Disposition: 01 DISCHARGE HOME Condition: Stable Estrella Jovel MD May 09, 2017 07:43
[2017-05-09] MEDS ORDERED: SODIUM CHLORIDE 0.9% FLUSH 10 ML FLUSH IV FLUSH PRN (07:45)
[2017-05-09] MEDS ORDERED: ONDANSETRON HCL 4 MG/2 ML VIAL IVP ONE (07:45)
[2017-05-09] MEDS ORDERED: MORPHINE SULFATE 4 MG/ML INJ IV PUSH ONE (07:45)
[2017-05-09] MEDS ORDERED: KETOROLAC TROMETHAMINE 30 MG/ML (IVP) VIAL IV PUSH ONE (08:00)
[2017-05-09 08:08] LABS: AUTOMATED NEUTROPHIL # 7.1 TH/MM3 (1.8-7.7); BASOPHIL # 0.1 TH/MM3 (0-0.2); BASOPHIL % 0.7 % (0.0-2.0); EOSINOPHIL # 0.6 TH/MM3 (0-0.4); EOSINOPHIL % 5.6 % (0.0-4.0); HEMATOCRIT 46.1 % (35.0-46.0); HEMOGLOBIN 15.4 GM/DL (11.6-15.3); LYMPH % 26.8 % (9.0-44.0); LYMPHOCYTE # 3.1 TH/MM3 (1.0-4.8); MEAN CELL VOLUME 94.5 FL (80.0-100.0); MEAN CORPUSCULAR HEMOGLOBIN 31.6 PG (27.0-34.0); MEAN CORPUSCULAR HGB CONC 33.5 % (32.0-36.0); MEAN PLATELET VOLUME 6.9 FL (7.0-11.0); MONO % 5.6 % (0.0-8.0); MONOCYTE # 0.7 TH/MM3 (0-0.9); NEUT % 61.3 % (16.0-70.0); PLATELET COUNT 370 TH/MM3 (150-450); RED BLOOD COUNT 4.88 MIL/MM3 (4.00-5.30); RED CELL DISTRIBUTION WIDTH 12.8 % (11.6-17.2); WHITE BLOOD COUNT 11.6 TH/MM3 (4.0-11.0)
[2017-05-09 08:20] LABS: BACTERIA, URINE OCC /hpf; BILIRUBIN, URINE NEG (NEG); BLOOD, URINE NEG (NEG); GLUCOSE,URINE NEG (NEG); KETONE, URINE NEG (NEG); MUCUS URINE FEW /lpf (OCC); NITRITE,URINE NEG (NEG); PH, URINE 6.5 (5.0-8.5); SQUAMOUS EPITHELIAL CELL URINE 21 /hpf (0-5); URINE COLOR YELLOW (YELLW/STRAW); URINE LEUKOCYTE ESTERASE MOD (NEG)
[2017-05-09 08:23] LABS: BICARBONATE 26.8 MEQ/L (21.0-32.0); CALCIUM 8.8 MG/DL (8.5-10.1); CREATININE 0.83 MG/DL (0.50-1.00)
--- NOTE | 2017-05-09 09:23 | RADRPT ---
EXAM DATE/TIME: 05/09/2017 08:56 [facility] COMPARISON: CT ABDOMEN & PELVIS W CONTRAST, November 18, 2010, 22:49. INDICATIONS : Left lower quadrant pain, 5 weeks . IV CONTRAST: 91 cc Omnipaque 350 (iohexol) IV ORAL CONTRAST: No oral contrast ingested. RADIATION DOSE: 6.63 CTDIvol (mGy) MEDICAL HISTORY : None SURGICAL HISTORY : section. Appendectomy.Cholecystectomy. ENCOUNTER: Initial ACUITY: 1 day PAIN SCALE: 5/10 LOCATION: Left lower quadrant TECHNIQUE: Volumetric scanning of the abdomen and pelvis was performed. Using automated exposure control and adjustment of the mA and/or kV according to patient size, radiation dose was kept as low as reasonably achievable to obtain optimal diagnostic quality images. DICOM format image data is av ailable electronically for review and comparison. FINDINGS: LOWER LUNGS: Minimal by basilar groundglass opacities likely reflecting atelectasis. LIVER: Homogeneous density without lesion. There is no dilation of the biliary tree. Gallbladder is reportedly surgically absent although a gallbladder is visualized. SPLEEN: Normal size without lesion. PANCREAS: Within normal limits. KIDNEYS: Normal in size and shape. There is no mass, stone or hydronephrosis. ADRENAL GLANDS: Within normal limits. VASCULAR: There is no aortic aneurysm. BOWEL/MESENTERY: The stomach, small bowel, and colon demonstrate no acute abnormality. There is no free intraperitoneal air or fluid. ABDOMINAL WALL: Within normal limits. RETROPERITONEUM: There is no lymphadenopathy. BLADDER: No wall thickening or mass. REPRODUCTIVE: Prominent endometrium and slightly prominent bilateral gonadal veins. INGUINAL: There is no lymphadenopathy or hernia. MUSCULOSKELETAL: Within normal limits for patient age. CONCLUSION: 1. No acute CT abnormality to explain patient's abdominal pain. 2. Patient is with prominent endometrium. Although this is within expected findings, clini omar correlation is recommended. Joe Houser MD on May 09, 2017 at 9:08 Board Certified Radiologist. This report was verified electronically.
[2017-05-09] MEDS ORDERED: IBUP1TAB7 PO (09:37)
[2017-05-09 10:00] VITALS: BP 103/59
== END 2017-05-09 10:25 | disposition home or self-care (01) ==
LOC: NEPE 07:18
DX: O90.89 Other complications of the puerperium, not elsewhere classified (principal); R10.32 Left lower quadrant pain; R11.0 Nausea; E11.9 Type 2 diabetes mellitus without complications
CPT/HCPCS: 74177; 80048; 81001; 84703; 85025; 96374; 96375; 99285; J1885; J2405; Q9967